=== PATIENT | male | born 1955 | race Caucasian/White ===

== ENCOUNTER 2016-11-03 20:03 | Emergency (ER) | payer SELFPAY ==
[2016-11-03 20:39] LABS: Hematocrit 46 % (42-52); Hemoglobin 15.1 g/dl (14.0-18.0); Mean Corpuscular HGB Conc 33 g/dl (31-36); Mean Corpuscular Hemoglobin 32 pg (27-31); Mean Corpuscular Volume 95 fL (80-94); Mean Platelet Volume 9 um3 (7.4-10.4); Red Cell Distribution Width 13 % (10.5-15); White Blood Count 6.8 10^3/ul (3.5-10.8)
[2016-11-03 20:53] LABS: BUN/Creatinine Ratio 20.4 (8-20); Calcium 9.7 mg/dL (8.6-10.3); EGFR African American 106.2 (>60); EGFR Non-African American 82.6 (>60); Potassium 3.7 mmol/L (3.5-5.0)
[2016-11-03] MEDS ORDERED: Haloperidol INJ IV/IM* 5 MG/ML AMP IM ONE (21:16)
[2016-11-03] MEDS ORDERED: LORazepam INJ* 2 MG/ML 1 ML VIAL IM ONE (21:16)
[2016-11-03] MEDS ORDERED: diPHENhydraMINE IV* 50 MG/ML 1 ml VIAL (BENADRYL) IM ONE (21:16)
[2016-11-03] MEDS ORDERED: LORazepam INJ* 2 MG/ML 1 ML VIAL ONE (21:18)
[2016-11-03] MEDS ORDERED: diPHENhydraMINE IV* 50 MG/ML 1 ml VIAL (BENADRYL) ONE (21:19)
[2016-11-03] MEDS ORDERED: Haloperidol INJ IV/IM* 5 MG/ML AMP ONE (21:19)
--- NOTE | 2016-11-03 22:29 | ED ---
Sonia Yuen Michael, scribed for Grabiel Gonzalez MD on 11/03/16 at 2034 . Complex/Multi-Sys Presentation - HPI Summary HPI Summary: 61 y/o male was BIBA to the ED presenting with hypoglycemia. The pt drove to [place] [employer] [place] and got out of his car when he fell over, and the chema stationary engineer apprentice called 911 per EMS. In the ambulance, the pt had a blood glucose of 37, so he was given one 30g oral glucose tablet, and it was raised to 53. He was given another glucose tablet and his blood glucose remained the same. The pt then took out bag of random tablets, which looked like glucose tablets, and took 7 tablets per EMS. The pt reports to alcohol use to the nurse. He was slurring speech in the ambulance and at the ED. The PMHx is significant for DM. - History Of Current Complaint Chief Complaint: EDDiabeticProb Time Seen by Provider: 11/03/16 20:14 Hx Obtained From: EMS, Medical Records Hx From Patient Unobtainable Due To: Altered Mental Status Onset/Duration: Gradual Onset, Lasting Hours Timing: Constant Severity Currently: Moderate Severity Initially: Moderate Associated Signs And Symptoms: Positive: Other - hypoglycemia. alcohol abuse. slurred speech. PMH/Surg Hx/FS Hx/Imm Hx Endocrine/Hematology History: Reports: Hx Diabetes Infectious Disease History: Denies: Traveled Outside the [place] in Last 30 Days - Family History Known Family History: Positive: Unknown Family History: pt could not report on FHx due to AMS - Social History Occupation: Employed Full-time Lives: Alone Review of Systems Positive: Other - hypoglycemia Positive: Slurred Speech Positive: Other - alcohol use All Other Systems Reviewed And Are Negative: Yes Physical Exam Triage Information Reviewed: Yes Vital Signs On Initial Exam: Initial Vitals Temp Pulse Resp BP Pulse Ox 0 F 0 0 0/0 0 11/03/16 20:32 11/03/16 20:32 11/03/16 20:32 11/03/16 20:32 11/03/16 20:32 Vital Signs Reviewed: Yes Appearance: Positive: No Pain Distress Skin: Positive: Warm Head/Face: Positive: Normal Head/Face Inspection Eyes: Positive: PATY Neck: Positive: Supple Respiratory/Lung Sounds: Positive: Clear to Auscultation, Breath Sounds Present Cardiovascular: Positive: RRR Abdomen Description: Positive: Nontender, Soft Bowel Sounds: Positive: Present Musculoskeletal: Positive: Strength/ROM Intact Neurological: Positive: Alert, Oriented to Person Place, Time Psychiatric: Positive: Anxious Diagnostics - Vital Signs Vital Signs Temp Pulse Resp BP Pulse Ox 11/03/16 22:13 94 122/74 94 11/03/16 21:28 20 11/03/16 20:32 0 F 0 0 0/0 0 - Laboratory Lab Results: Lab Results 11/03/16 11/03/16 Range/Units 20:20 20:20 WBC 6.8 (3.5-10.8) 10^3/ul RBC 4.80 (4.0-5.4) 10^6/ul Hgb 15.1 (14.0-18.0) g/dl Hct 46 (42-52) % MCV 95 H (80-94) fL MCH 32 H (27-31) pg MCHC 33 (31-36) g/dl RDW 13 (10.5-15) % Plt Count 262 (150-450) 10^3/ul MPV 9 (7.4-10.4) um3 Neut % (Auto) 61.2 (38-83) % Lymph % (Auto) 21.2 L (25-47) % [place] % (Auto) 12.4 H (1-9) % Eos % (Auto) 1.9 (0-6) % Baso % (Auto) 3.3 H (0-2) % Absolute Neuts (auto) 4.2 (1.5-7.7) 10^3/ul Absolute Lymphs (auto) 1.4 (1.0-4.8) 10^3/ul Absolute Monos (auto) 0.8 (0-0.8) 10^3/ul Absolute Eos (auto) 0.1 (0-0.6) 10^3/ul Absolute Basos (auto) 0.2 (0-0.2) 10^3/ul Absolute Nucleated RBC 0.02 10^3/ul Nucleated RBC % 0.3 Sodium 137 (133-145) mmol/L Potassium 3.7 (3.5-5.0) mmol/L Chloride 105 (101-111) mmol/L Carbon Dioxide 20 L (22-32) mmol/L Anion Gap 12 H (2-11) mmol/L BUN 19 (6-24) mg/dL Creatinine 0.93 (0.67-1.17) mg/dL Est GFR ( Amer) 106.2 (>60) Est GFR (Non-Af Amer) 82.6 (>60) BUN/Creatinine Ratio 20.4 H (8-20) Glucose 125 H (70-100) mg/dL Calcium 9.7 (8.6-10.3) mg/dL Serum Alcohol 234 H (<10) mg/dL Result Diagrams: 11/03/16 20:20 11/03/16 20:20 Lab Statement: Any lab studies that have been ordered have been reviewed, and results considered in the medical decision making process. Complex Multi-Symp Course/Dx - Diagnoses Provider Diagnoses: Alcohol intoxication, Hypoglycemia Discharge - Discharge Plan Condition: Stable Disposition: HOME Patient Education Materials: Alcohol Intoxication (ED), Diabetic Hypoglycemia ( ED) Referrals: [facility] [place] PHYSICIAN REFERRAL [Outside] Non Staff,Doctor [Primary Care Provider] - Additional Instructions: You should follow up with your PCP or [facility] [place] Physician Referral within the next 2- 3 days. The documentation as recorded by the Sonia petty Michael accurately reflects the service I personally performed and the decisions made by me, Grabiel Gonzalez MD.
== END 2016-11-04 02:18 | disposition home or self-care (01) ==
LOC: ED 20:03
DX: F10.129 Alcohol abuse with intoxication, unspecified (principal); E16.2 Hypoglycemia, unspecified; R47.81 Slurred speech
CPT/HCPCS: 36415; 80048; 80320; 85025; 96374; 96375; 99285; G0480; J1200; J1630; J2060

== ENCOUNTER 2016-11-27 16:50 | Observation (INO) | payer SELFPAY ==
[2016-11-27] MEDS ORDERED: Dextrose 50% Syringe 50 ML* 25 GM/50 ML SYRINGE ONE (16:54)
[2016-11-27] MEDS ORDERED: Haloperidol INJ IV/IM* 5 MG/ML AMP IM ONE (17:01)
[2016-11-27] MEDS ORDERED: LORazepam INJ* 2 MG/ML 1 ML VIAL IM ONE (17:01)
[2016-11-27] MEDS ORDERED: diPHENhydraMINE IV* 50 MG/ML 1 ml VIAL (BENADRYL) IM ONE (17:01)
[2016-11-27] MEDS ORDERED: diPHENhydraMINE IV* 50 MG/ML 1 ml VIAL (BENADRYL) ONE (17:05)
[2016-11-27] MEDS ORDERED: LORazepam INJ* 2 MG/ML 1 ML VIAL ONE (17:05)
[2016-11-27] MEDS ORDERED: Haloperidol INJ IV/IM* 5 MG/ML AMP ONE (17:06)
[2016-11-27 17:17] LABS: Hematocrit 41 % (42-52); Hemoglobin 13.2 g/dl (14.0-18.0); Mean Corpuscular HGB Conc 33 g/dl (31-36); Mean Corpuscular Hemoglobin 32 pg (27-31); Mean Corpuscular Volume 97 fL (80-94); Mean Platelet Volume 9 um3 (7.4-10.4); Red Blood Count 4.17 10^6/ul (4.0-5.4); Red Cell Distribution Width 14 % (10.5-15)
[2016-11-27 17:31] LABS: ALT 16 U/L (7-52); Albumin 3.2 g/dL (3.2-5.2); Alkaline Phosphatase 69 U/L (34-104); BUN/Creatinine Ratio 24.7 (8-20); Blood Urea Nitrogen 19 mg/dL (6-24); CO2 Carbon Dioxide 23 mmol/L (22-32); Calcium 7.2 mg/dL (8.6-10.3); Chloride 110 mmol/L (101-111); EGFR African American 132.1 (>60); EGFR Non-African American 102.7 (>60); Globulin 2.1 g/dL (2-4); Glucose 60 mg/dL (70-100); Sodium 137 mmol/L (133-145); Total Protein 5.3 g/dL (6.4-8.9)
[2016-11-27 17:32] LABS: Anion Gap 4 mmol/L (2-11); Potassium 4.3 mmol/L (3.5-5.0)
[2016-11-27 17:33] LABS: AST 40 U/L (13-39)
[2016-11-27 17:38] LABS: Alcohol < 10 mg/dL (<10)
--- NOTE | 2016-11-27 18:07 | RAD ---
HISTORY: Altered mental status COMPARISONS: None TECHNIQUE: Multiple contiguous axial CT scans were obtained of the head without intravenous contrast. FINDINGS: The study is limited by patient motion artifact. HEMORRHAGE/INFARCT: There is no hemorrhage or acute infarct. MASSES/SHIFT: There is no mass or shift. EXTRA-AXIAL SPACES: There are no extra-axial fluid collections. SULCI AND VENTRICLES: The sulci and ventricles are normal in size and position for the patient's stated age. CEREBRUM: There are no focal parenchymal abnormalities. BRAINSTEM: There are no focal parenchymal abnormalities. CEREBELLUM: There are no focal parenchymal abnormalities. VESSELS: The vessels are grossly normal. PARANASAL SINUSES: The paranasal sinuses are clear. ORBITS: The orbits are unremarkable. BONES AND SOFT TISSUE: No bone or soft tissue abnormalities are noted. OTHER: None IMPRESSION: NO ACUTE INTRACRANIAL PATHOLOGY.
[2016-11-27] MEDS ORDERED: Dextrose 50% Syringe 50 ML* 25 GM/50 ML SYRINGE IV PUSH ONE ×2 (19:27)
[2016-11-27] MEDS ORDERED: D5NS 0.9% 1000 ML BAG* 1,000 ML IV SCH (20:00)
[2016-11-27] MEDS ORDERED: Acetaminophen TAB* 325 MG PO PRN (20:21)
[2016-11-27] MEDS ORDERED: Ondansetron INJ* 2 MG/ML VIAL IV PRN (20:21)
--- NOTE | 2016-11-27 20:51 | RAD ---
HISTORY: Altered mental status, syncope COMPARISONS: None VIEWS:1: Single frontal portable view of the chest at 8:25 PM FINDINGS: LINES AND TUBES: None. CARDIOMEDIASTINAL SILHOUETTE: The cardiomediastinal silhouette is normal for portable technique. PLEURA: The costophrenic angles are sharp. No pleural abnormalities are noted. LUNG PARENCHYMA: The lungs are clear. ABDOMEN: The upper abdomen is clear. There is no subphrenic gas. BONES AND SOFT TISSUES: No bone or soft tissue abnormalities are noted. IMPRESSION: NO ACTIVE CARDIOPULMONARY DISEASE.
[2016-11-27 21:22] LABS: Urine Bilirubin Negative (Negative); Urine Glucose 1+(50 mg/dL) (Negative); Urine Nitrite Negative (Negative)
[2016-11-27 21:28] LABS: Magnesium 1.9 mg/dL (1.9-2.7)
[2016-11-27 21:35] LABS: Benzodiazepine Urine Screen None Detected (None Detect)
--- NOTE | 2016-11-27 21:50 | RAD ---
HISTORY: Syncope, head injury COMPARISONS: None TECHNIQUE: Multiple contiguous axial CT scans were obtained of the cervical spine without intravenous contrast, with coronal and sagittal multiplanar reformations. FINDINGS: BRAIN: The visualized brain is unremarkable CENTRAL CANAL: Evaluation of the central canal is limited on CT technique; however, there is no obvious canalicular mass or epidural hemorrhage. ALIGNMENT: The alignment is normal, without subluxation or dislocation. VERTEBRAL BODIES: There is anterolateral marginal osteophyte formation. There is no displaced fracture or dislocation. JOINTS: There is diffuse uncovertebral and facet hypertrophic change MUSCULATURE: Unremarkable INTERVERTEBRAL DISCS: There is diffuse loss of intervertebral disc height. AXIAL IMAGES: C2-C3: There is no osseous neural foraminal narrowing or central canal stenosis. C3-C4: There is bilateral uncovertebral facet hypertrophy. There is moderate to severe bilateral neural foraminal narrowing. There is no osseous central canal stenosis. C4-C5: There is no osseous neural foraminal narrowing or central canal stenosis. C5-C6: There is bilateral uncovertebral and facet hypertrophy. There is mild bilateral neural foraminal narrowing. There is mild narrowing of the central canal. C6-C7: There is no osseous neural foraminal narrowing or central canal stenosis. C7-T1: There is no osseous neural foraminal narrowing or central canal stenosis. SOFT TISSUES: There are innumerable subcentimeter short axis lymph nodes along the anterior and posterior cervical chain. There is no lymphadenopathy by size criteria. The prevertebral fat stripe is preserved. OTHER: None. IMPRESSION: 1. NO ACUTE OSSEOUS INJURY TO THE CERVICAL SPINE. 2. DEGENERATIVE DISC DISEASE AND OSTEOARTHRITIS. 3. THERE IS MILD NARROWING OF THE CENTRAL CANAL AT C5-C6. THERE IS MULTILEVEL NEURAL FORAMINAL NARROWING DESCRIBED ABOVE. 4. THERE ARE INNUMERABLE SHOTTY SUBCENTIMETER SHORT AXIS LYMPH NODES ALONG THE NECK, WITHOUT LYMPHADENOPATHY BY SIZE CRITERIA
--- NOTE | 2016-11-27 22:04 | ED ---
Amina Yuen Erika, scribed for Dom Vallejo MD on 11/27/16 at 1716 . Altered Mental Status - HPI Summary HPI Summary: Patient is a 61-year-old male BIBA to the ED with decreased responsiveness. EMS reports that patient was found lying on the ground at work with a low blood glucose. EMS gave him glucose en route, which improved responsiveness slightly. Patient was still combative when brought into the ED. EMS reports patient did not vomit en route. LEVEL 5 CAVEAT - AMS. - History Of Current Complaint Chief Complaint: EDSubstanceAbuse Stated Complaint: UNRESPONSIVE Time Seen by Provider: 11/27/16 16:51 Hx Obtained From: EMS Onset/Duration: Still Present Timing: Constant Severity Currently: Moderate Character: Responsiveness Alleviating Factor(s): Glucose - Allergies/Home Medications Allergies/Adverse Reactions: Allergies Allergy/AdvReac Type Severity Reaction Status Date / Time No Known Allergies Allergy Verified 11/27/16 17:48 PMH/Surg Hx/FS Hx/Imm Hx Endocrine/Hematology History: Reports: Hx Diabetes Infectious Disease History: Denies: Traveled Outside the [place] in Last 30 Days - Family History Known Family History: Positive: Unknown Family History: pt could not report on FHx due to AMS - Social History Occupation: Employed Full-time Alcohol Use: unknown Smoking Status (MU): Unknown if Ever Smoked Review of Systems - ROS Summary Review of Systems Summary: LEVEL 5 CAVEAT - AMS Constitutional: Other - Low blood glucose per EMS Negative: Vomiting Neurological: Other - decreased responsiveness All Other Systems Reviewed And Are Negative: No Physical Exam Triage Information Reviewed: Yes Vital Signs On Initial Exam: Initial Vitals Resp 18 11/27/16 17:10 Vital Signs Reviewed: Yes Completion Of Physical Exam Limited Due To: Altered Mental Status, Level 5 Appearance: Positive: Well-Appearing, No Pain Distress Skin: Positive: Warm, Skin Color Reflects Adequate Perfusion, Dry Head/Face: Positive: Cephalohematoma - to the occiput with an abrasion, Other - Small abrasion to the left lateral occiput Eyes: Positive: Normal ENT: Positive: Normal ENT inspection Neck: Positive: Supple, Nontender Respiratory/Lung Sounds: Positive: Clear to Auscultation, Breath Sounds Present Cardiovascular: Positive: RRR Abdomen Description: Positive: Nontender, Soft Bowel Sounds: Positive: Present Neurological: Positive: Other - Patient will answer questions occasionally, but answers are inconsistent. Pt's eyes are closed but open to voice Psychiatric: Positive: Other - Combative Diagnostics - Vital Signs Vital Signs Resp 11/27/16 17:10 18 - Laboratory Lab Results: Lab Results 11/27/16 11/27/16 11/27/16 Range/Units 16:52 16:52 16:52 WBC 6.0 (3.5-10.8) 10^3/ul RBC 4.17 (4.0-5.4) 10^6/ul Hgb 13.2 L (14.0-18.0) g/dl Hct 41 L (42-52) % MCV 97 H (80-94) fL MCH 32 H (27-31) pg MCHC 33 (31-36) g/dl RDW 14 (10.5-15) % Plt Count 248 (150-450) 10^3/ul MPV 9 (7.4-10.4) um3 Neut % (Auto) 53.1 (38-83) % Lymph % (Auto) 30.0 (25-47) % [place] % (Auto) 15.0 H (1-9) % Eos % (Auto) 1.0 (0-6) % Baso % (Auto) 0.9 (0-2) % Absolute Neuts (auto) 3.2 (1.5-7.7) 10^3/ul Absolute Lymphs (auto) 1.8 (1.0-4.8) 10^3/ul Absolute Monos (auto) 0.9 H (0-0.8) 10^3/ul Absolute Eos (auto) 0.1 (0-0.6) 10^3/ul Absolute Basos (auto) 0.1 (0-0.2) 10^3/ul Absolute Nucleated RBC 0.01 10^3/ul Nucleated RBC % 0.1 INR (Anticoag Therapy) (0.89-1.11) Sodium 137 (133-145) mmol/L Potassium 4.3 (3.5-5.0) mmol/L Chloride 110 (101-111) mmol/L Carbon Dioxide 23 (22-32) mmol/L Anion Gap 4 (2-11) mmol/L BUN 19 (6-24) mg/dL Creatinine 0.77 (0.67-1.17) mg/dL Est GFR ( Amer) 132.1 (>60) Est GFR (Non-Af Amer) 102.7 (>60) BUN/Creatinine Ratio 24.7 H (8-20) Glucose 60 L (70-100) mg/dL POC Glucose (mg/dL) (74-106) mg/dL Lactic Acid 2.1 H* (0.5-2.0) mmol/L Calcium 7.2 L (8.6-10.3) mg/dL Magnesium TNP Total Bilirubin 0.40 (0.2-1.0) mg/dL AST 40 H (13-39) U/L ALT 16 (7-52) U/L Alkaline Phosphatase 69 (34-104) U/L Troponin I 0.00 (<0.04) ng/mL Total Protein 5.3 L (6.4-8.9) g/dL Albumin 3.2 (3.2-5.2) g/dL Globulin 2.1 (2-4) g/dL Albumin/Globulin Ratio 1.5 (1-3) Procalcitonin (<0.6) ng/mL Prolactin Cancelled Serum Alcohol < 10 (<10) mg/dL 11/27/16 11/27/16 11/27/16 Range/Units 16:52 16:52 19:38 WBC (3.5-10.8) 10^3/ul RBC (4.0-5.4) 10^6/ul Hgb (14.0-18.0) g/dl Hct (42-52) % MCV (80-94) fL MCH (27-31) pg MCHC (31-36) g/dl RDW (10.5-15) % Plt Count (150-450) 10^3/ul MPV (7.4-10.4) um3 Neut % (Auto) (38-83) % Lymph % (Auto) (25-47) % [place] % (Auto) (1-9) % Eos % (Auto) (0-6) % Baso % (Auto) (0-2) % Absolute Neuts (auto) (1.5-7.7) 10^3/ul Absolute Lymphs (auto) (1.0-4.8) 10^3/ul Absolute Monos (auto) (0-0.8) 10^3/ul Absolute Eos (auto) (0-0.6) 10^3/ul Absolute Basos (auto) (0-0.2) 10^3/ul Absolute Nucleated RBC 10^3/ul Nucleated RBC % INR (Anticoag Therapy) 0.89 (0.89-1.11) Sodium (133-145) mmol/L Potassium (3.5-5.0) mmol/L Chloride (101-111) mmol/L Carbon Dioxide (22-32) mmol/L Anion Gap (2-11) mmol/L BUN (6-24) mg/dL Creatinine (0.67-1.17) mg/dL Est GFR ( Amer) (>60) Est GFR (Non-Af Amer) (>60) BUN/Creatinine Ratio (8-20) Glucose 169 H (70-100) mg/dL POC Glucose (mg/dL) (74-106) mg/dL Lactic Acid (0.5-2.0) mmol/L Calcium (8.6-10.3) mg/dL Magnesium Total Bilirubin (0.2-1.0) mg/dL AST (13-39) U/L ALT (7-52) U/L Alkaline Phosphatase (34-104) U/L Troponin I (<0.04) ng/mL Total Protein (6.4-8.9) g/dL Albumin (3.2-5.2) g/dL Globulin (2-4) g/dL Albumin/Globulin Ratio (1-3) Procalcitonin < 0.1 (<0.6) ng/mL Prolactin Serum Alcohol (<10) mg/dL 11/27/16 Range/Units 20:10 WBC (3.5-10.8) 10^3/ul RBC (4.0-5.4) 10^6/ul Hgb (14.0-18.0) g/dl Hct (42-52) % MCV (80-94) fL MCH (27-31) pg MCHC (31-36) g/dl RDW (10.5-15) % Plt Count (150-450) 10^3/ul MPV (7.4-10.4) um3 Neut % (Auto) (38-83) % Lymph % (Auto) (25-47) % [place] % (Auto) (1-9) % Eos % (Auto) (0-6) % Baso % (Auto) (0-2) % Absolute Neuts (auto) (1.5-7.7) 10^3/ul Absolute Lymphs (auto) (1.0-4.8) 10^3/ul Absolute Monos (auto) (0-0.8) 10^3/ul Absolute Eos (auto) (0-0.6) 10^3/ul Absolute Basos (auto) (0-0.2) 10^3/ul Absolute Nucleated RBC 10^3/ul Nucleated RBC % INR (Anticoag Therapy) (0.89-1.11) Sodium (133-145) mmol/L Potassium (3.5-5.0) mmol/L Chloride (101-111) mmol/L Carbon Dioxide (22-32) mmol/L Anion Gap (2-11) mmol/L BUN (6-24) mg/dL Creatinine (0.67-1.17) mg/dL Est GFR ( Amer) (>60) Est GFR (Non-Af Amer) (>60) BUN/Creatinine Ratio (8-20) Glucose (70-100) mg/dL POC Glucose (mg/dL) 150 H (74-106) mg/dL Lactic Acid (0.5-2.0) mmol/L Calcium (8.6-10.3) mg/dL Magnesium Total Bilirubin (0.2-1.0) mg/dL AST (13-39) U/L ALT (7-52) U/L Alkaline Phosphatase (34-104) U/L Troponin I (<0.04) ng/mL Total Protein (6.4-8.9) g/dL Albumin (3.2-5.2) g/dL Globulin (2-4) g/dL Albumin/Globulin Ratio (1-3) Procalcitonin (<0.6) ng/mL Prolactin Serum Alcohol (<10) mg/dL Result Diagrams: 11/27/16 16:52 11/27/16 21:05 Lab Statement: Any lab studies that have been ordered have been reviewed, and results considered in the medical decision making process. - CT Brain CT CT Interpretation Completed By: Radiologist - IMPRESSION: NO ACUTE INTRACRANIAL PATHOLOGY. Re-Evaluation - Re-Evaluation First Eval Re-Evaluation Time: 19:27 Comment: Notified patient's blood glucose is 36. Into room. D50 ordered. Altered Mental Statu Course/Dx - Course Course Of Treatment: Mr. Morgan came in having been found unresponsive with a low blood sugar. He was given D50 with some response but he was quite confused and agitated on arrival and his BS was again low. He was given more D50 with some improvement but not complete. Within an hour he dropped his BS again and was given another bolus and started on a drip. - Diagnoses Discharge Diagnoses: Hypoglycemia associated with diabetes - Provider Notifications Discussed Care Of Patient With: Dr. Mccarthy (hospitalist) at 20:12 - agrees to admit - Critical Care Time Critical Care Time: 30-74 min Discharge - Discharge Plan Condition: Fair Disposition: ADMITTED TO [facility] documentation as recorded by the Amina petty Erika accurately reflects the service I personally performed and the decisions made by me, Dom Vallejo MD.
--- NOTE | 2016-11-27 22:36 | HP ---
H&P (Free Text) History and Physical: PCP: Date/Time of Evaluation: 11/27/20162014 CC: AMS, refractory hypoglycemia, closed head injury HPI: Mr Morgan is a 61YO male HX recently diagnosed DM2 who was found down where he works at the [email or web address] with a contusion to the occipital area. Blood sugar reading was 'low' upon arrival of EMS prompting administration of an amp of D50. He arrived to [facility] agitated with a finger stick glucose of 77. An additional amp of D50 was administered resulting in increased energy, but continued confusion. Blood work returned a glucose of 60 resulting in a 3rd dose of D50. Upon my arrival, he is quite fatigued requiring repetitive stimulation to remain awake during the history. He denies complaints, specifically no chest pain, SOB, palpitations, N/V, sweats, changes in bowel/ bladder, focal W/N/T, HX seizures, or other issues. He claims to only drink ~3 alcoholic beverages weekly. Evaluation reveals stable vitals. Labs are significant for an MCV of 97, the above low sugars, a lactic acid of 2.1, & a negative urine tox screen. Interestingly he was here in [facility] on 11/03/2016 with hypoglycemia and a serum alcohol of 235 clearly refuting his claim of minimal alcohol consumption. ECG is NSR rate 83, no ischemia. Radiologic work up is negative for acute finding. Overall it seems most likely given his recent intoxication and MCV of 97 that he consumes more than he admits, has had an alcohol withdrawal seizure resulting in a fall with closed head injury & profound hypoglycemia, and is now post-ictal explaining his lethargy & confusion post-glucose replacement. Alternatively, he could have become profoundly hypoglycemic and fallen with his ongoing confusion related to a mild concussion. PMedHx DM2 HTN HLD Medications Nursing to reconcile Allergies No Known Allergies Allergy (Verified 11/27/16 17:48) SocHx: denies tobacco & recreational drugs, claims 1-3 alcoholic drinks weekly; works for the [email or web address]; full code status FamHx: positive for DM2, HTN ROS: as above, otherwise reviewed and all were negative Constitutional: NAD, normally developed, well-nourished white male vitals: Vital Signs Temp 37.0 C 11/27/16 17:12 Pulse 63 11/27/16 21:00 Resp 24 11/27/16 17:12 BP 101/59 11/27/16 21:00 Pulse Ox 94 11/27/16 21:00 Intake & Output 11/26/16 11/27/16 11/27/16 23:59 11:59 23:59 Weight 72.575 kg HEENM: boggy contusion/hematoma central occiput; sclera/conjunctiva: non-icteric /clear; hearing: clinically intact; oropharynx: clear, mucosa moist Neck: soft tissue: non-tender; thyroid: normal Pulmonary: clear to auscultation bilaterally, good aeration, no accessory muscle use CV: RR/RR, normal S1S2, no carotid bruit, no jugular venous distention, 2+ B DP/ PT, no edema Abdominal: soft, non-distended, non-tender, no rebound/guarding/rigidity, normoactive bowel sounds, no hepatosplenomegaly or masses, no costovertebral angle tenderness Musculoskeletal: general: grossly intact; gait: too lethargic to safely test Integumental: normal appearance and texture Psychiatric orientation: AA&O to PPS affect: lethargic mood: acquiescent eye contact: poor content: unreliable currently memory: absent regarding event responses: slowed, requires recurrent physical stimulation to remain awake insight: poor Testing: Lab Results 11/27/16 11/27/16 11/27/16 Range/Units 16:52 16:52 16:52 WBC 6.0 (3.5-10.8) 10^3/ul RBC 4.17 (4.0-5.4) 10^6/ul Hgb 13.2 L (14.0-18.0) g/dl Hct 41 L (42-52) % MCV 97 H (80-94) fL MCH 32 H (27-31) pg MCHC 33 (31-36) g/dl RDW 14 (10.5-15) % Plt Count 248 (150-450) 10^3/ul MPV 9 (7.4-10.4) um3 Neut % (Auto) 53.1 (38-83) % Lymph % (Auto) 30.0 (25-47) % Buchanan % (Auto) 15.0 H (1-9) % Eos % (Auto) 1.0 (0-6) % Baso % (Auto) 0.9 (0-2) % Absolute Neuts (auto) 3.2 (1.5-7.7) 10^3/ul Absolute Lymphs (auto) 1.8 (1.0-4.8) 10^3/ul Absolute Monos (auto) 0.9 H (0-0.8) 10^3/ul Absolute Eos (auto) 0.1 (0-0.6) 10^3/ul Absolute Basos (auto) 0.1 (0-0.2) 10^3/ul Absolute Nucleated RBC 0.01 10^3/ul Nucleated RBC % 0.1 INR (Anticoag Therapy) (0.89-1.11) Sodium 137 (133-145) mmol/L Potassium 4.3 (3.5-5.0) mmol/L Chloride 110 (101-111) mmol/L Carbon Dioxide 23 (22-32) mmol/L Anion Gap 4 (2-11) mmol/L BUN 19 (6-24) mg/dL Creatinine 0.77 (0.67-1.17) mg/dL Est GFR ( Amer) 132.1 (>60) Est GFR (Non-Af Amer) 102.7 (>60) BUN/Creatinine Ratio 24.7 H (8-20) Glucose 60 L (70-100) mg/dL POC Glucose (mg/dL) (74-106) mg/dL Lactic Acid 2.1 H* (0.5-2.0) mmol/L Calcium 7.2 L (8.6-10.3) mg/dL Magnesium TNP Total Bilirubin 0.40 (0.2-1.0) mg/dL AST 40 H (13-39) U/L ALT 16 (7-52) U/L Alkaline Phosphatase 69 (34-104) U/L Troponin I 0.00 (<0.04) ng/mL Total Protein 5.3 L (6.4-8.9) g/dL Albumin 3.2 (3.2-5.2) g/dL Globulin 2.1 (2-4) g/dL Albumin/Globulin Ratio 1.5 (1-3) Procalcitonin (<0.6) ng/mL Prolactin Cancelled Urine Color Urine Appearance Urine pH (5-9) Ur Specific [place] (1.010-1.030) Urine Protein (Negative) Urine Ketones (Negative) Urine Blood (Negative) Urine Nitrate (Negative) Urine Bilirubin (Negative) Urine Urobilinogen (Negative) Ur Leukocyte Esterase (Negative) Urine Glucose (Negative) Urine Opiates Screen (None Detect) Ur Barbiturates Screen (None Detect) Ur Phencyclidine Scrn (None Detect) Ur Amphetamines Screen (None Detect) U Benzodiazepines Scrn (None Detect) Urine Cocaine Screen (None Detect) U Cannabinoids Screen (None Detect) Serum Alcohol < 10 (<10) mg/dL 11/27/16 11/27/16 11/27/16 Range/Units 16:52 16:52 19:38 WBC (3.5-10.8) 10^3/ul RBC (4.0-5.4) 10^6/ul Hgb (14.0-18.0) g/dl Hct (42-52) % MCV (80-94) fL MCH (27-31) pg MCHC (31-36) g/dl RDW (10.5-15) % Plt Count (150-450) 10^3/ul MPV (7.4-10.4) um3 Neut % (Auto) (38-83) % Lymph % (Auto) (25-47) % Buchanan % (Auto) (1-9) % Eos % (Auto) (0-6) % Baso % (Auto) (0-2) % Absolute Neuts (auto) (1.5-7.7) 10^3/ul Absolute Lymphs (auto) (1.0-4.8) 10^3/ul Absolute Monos (auto) (0-0.8) 10^3/ul Absolute Eos (auto) (0-0.6) 10^3/ul Absolute Basos (auto) (0-0.2) 10^3/ul Absolute Nucleated RBC 10^3/ul Nucleated RBC % INR (Anticoag Therapy) 0.89 (0.89-1.11) Sodium (133-145) mmol/L Potassium (3.5-5.0) mmol/L Chloride (101-111) mmol/L Carbon Dioxide (22-32) mmol/L Anion Gap (2-11) mmol/L BUN (6-24) mg/dL Creatinine (0.67-1.17) mg/dL Est GFR ( Amer) (>60) Est GFR (Non-Af Amer) (>60) BUN/Creatinine Ratio (8-20) Glucose 169 H (70-100) mg/dL POC Glucose (mg/dL) (74-106) mg/dL Lactic Acid (0.5-2.0) mmol/L Calcium (8.6-10.3) mg/dL Magnesium Total Bilirubin (0.2-1.0) mg/dL AST (13-39) U/L ALT (7-52) U/L Alkaline Phosphatase (34-104) U/L Troponin I (<0.04) ng/mL Total Protein (6.4-8.9) g/dL Albumin (3.2-5.2) g/dL Globulin (2-4) g/dL Albumin/Globulin Ratio (1-3) Procalcitonin < 0.1 (<0.6) ng/mL Prolactin Urine Color Urine Appearance Urine pH (5-9) Ur Specific [place] (1.010-1.030) Urine Protein (Negative) Urine Ketones (Negative) Urine Blood (Negative) Urine Nitrate (Negative) Urine Bilirubin (Negative) Urine Urobilinogen (Negative) Ur Leukocyte Esterase (Negative) Urine Glucose (Negative) Urine Opiates Screen (None Detect) Ur Barbiturates Screen (None Detect) Ur Phencyclidine Scrn (None Detect) Ur Amphetamines Screen (None Detect) U Benzodiazepines Scrn (None Detect) Urine Cocaine Screen (None Detect) U Cannabinoids Screen (None Detect) Serum Alcohol (<10) mg/dL 11/27/16 11/27/16 11/27/16 Range/Units 20:10 20:45 21:05 WBC (3.5-10.8) 10^3/ul RBC (4.0-5.4) 10^6/ul Hgb (14.0-18.0) g/dl Hct (42-52) % MCV (80-94) fL MCH (27-31) pg MCHC (31-36) g/dl RDW (10.5-15) % Plt Count (150-450) 10^3/ul MPV (7.4-10.4) um3 Neut % (Auto) (38-83) % Lymph % (Auto) (25-47) % Buchanan % (Auto) (1-9) % Eos % (Auto) (0-6) % Baso % (Auto) (0-2) % Absolute Neuts (auto) (1.5-7.7) 10^3/ul Absolute Lymphs (auto) (1.0-4.8) 10^3/ul Absolute Monos (auto) (0-0.8) 10^3/ul Absolute Eos (auto) (0-0.6) 10^3/ul Absolute Basos (auto) (0-0.2) 10^3/ul Absolute Nucleated RBC 10^3/ul Nucleated RBC % INR (Anticoag Therapy) (0.89-1.11) Sodium (133-145) mmol/L Potassium 3.7 (3.5-5.0) mmol/L Chloride (101-111) mmol/L Carbon Dioxide (22-32) mmol/L Anion Gap (2-11) mmol/L BUN (6-24) mg/dL Creatinine (0.67-1.17) mg/dL Est GFR ( Amer) (>60) Est GFR (Non-Af Amer) (>60) BUN/Creatinine Ratio (8-20) Glucose (70-100) mg/dL POC Glucose (mg/dL) 150 H 147 H (74-106) mg/dL Lactic Acid (0.5-2.0) mmol/L Calcium (8.6-10.3) mg/dL Magnesium 1.9 Total Bilirubin (0.2-1.0) mg/dL AST 31 (13-39) U/L ALT (7-52) U/L Alkaline Phosphatase (34-104) U/L Troponin I (<0.04) ng/mL Total Protein (6.4-8.9) g/dL Albumin (3.2-5.2) g/dL Globulin (2-4) g/dL Albumin/Globulin Ratio (1-3) Procalcitonin (<0.6) ng/mL Prolactin Urine Color Urine Appearance Urine pH (5-9) Ur Specific [place] (1.010-1.030) Urine Protein (Negative) Urine Ketones (Negative) Urine Blood (Negative) Urine Nitrate (Negative) Urine Bilirubin (Negative) Urine Urobilinogen (Negative) Ur Leukocyte Esterase (Negative) Urine Glucose (Negative) Urine Opiates Screen (None Detect) Ur Barbiturates Screen (None Detect) Ur Phencyclidine Scrn (None Detect) Ur Amphetamines Screen (None Detect) U Benzodiazepines Scrn (None Detect) Urine Cocaine Screen (None Detect) U Cannabinoids Screen (None Detect) Serum Alcohol (<10) mg/dL 11/27/16 11/27/16 11/27/16 Range/Units 21:05 21:10 21:10 WBC (3.5-10.8) 10^3/ul RBC (4.0-5.4) 10^6/ul Hgb (14.0-18.0) g/dl Hct (42-52) % MCV (80-94) fL MCH (27-31) pg MCHC (31-36) g/dl RDW (10.5-15) % Plt Count (150-450) 10^3/ul MPV (7.4-10.4) um3 Neut % (Auto) (38-83) % Lymph % (Auto) (25-47) % [place]anan % (Auto) (1-9) % Eos % (Auto) (0-6) % Baso % (Auto) (0-2) % Absolute Neuts (auto) (1.5-7.7) 10^3/ul Absolute Lymphs (auto) (1.0-4.8) 10^3/ul Absolute Monos (auto) (0-0.8) 10^3/ul Absolute Eos (auto) (0-0.6) 10^3/ul Absolute Basos (auto) (0-0.2) 10^3/ul Absolute Nucleated RBC 10^3/ul Nucleated RBC % INR (Anticoag Therapy) (0.89-1.11) Sodium (133-145) mmol/L Potassium (3.5-5.0) mmol/L Chloride (101-111) mmol/L Carbon Dioxide (22-32) mmol/L Anion Gap (2-11) mmol/L BUN (6-24) mg/dL Creatinine (0.67-1.17) mg/dL Est GFR ( Amer) (>60) Est GFR (Non-Af Amer) (>60) BUN/Creatinine Ratio (8-20) Glucose (70-100) mg/dL POC Glucose (mg/dL) (74-106) mg/dL Lactic Acid (0.5-2.0) mmol/L Calcium (8.6-10.3) mg/dL Magnesium Total Bilirubin (0.2-1.0) mg/dL AST (13-39) U/L ALT (7-52) U/L Alkaline Phosphatase (34-104) U/L Troponin I (<0.04) ng/mL Total Protein (6.4-8.9) g/dL Albumin (3.2-5.2) g/dL Globulin (2-4) g/dL Albumin/Globulin Ratio (1-3) Procalcitonin (<0.6) ng/mL Prolactin 17.5 Urine Color Straw Urine Appearance Clear Urine pH 6.0 (5-9) Ur Specific [place] 1.009 L (1.010-1.030) Urine Protein Negative (Negative) Urine Ketones Trace H (Negative) Urine Blood Negative (Negative) Urine Nitrate Negative (Negative) Urine Bilirubin Negative (Negative) Urine Urobilinogen Negative (Negative) Ur Leukocyte Esterase Negative (Negative) Urine Glucose 1+(50 mg/dl) H (Negative) Urine Opiates Screen None detected (None Detect) Ur Barbiturates Screen None detected (None Detect) Ur Phencyclidine Scrn None detected (None Detect) Ur Amphetamines Screen None detected (None Detect) U Benzodiazepines Scrn None detected (None Detect) Urine Cocaine Screen None detected (None Detect) U Cannabinoids Screen None detected (None Detect) Serum Alcohol (<10) mg/dL ECG, personally reviewed: NSR rate 83, no ischemia CXR, personally reviewed: IMPRESSION: NO ACTIVE CARDIOPULMONARY DISEASE. CT brain WO, personally reviewed: IMPRESSION: NO ACUTE INTRACRANIAL PATHOLOGY. CT C-spine WO: IMPRESSION: 1. NO ACUTE OSSEOUS INJURY TO THE CERVICAL SPINE. 2. DEGENERATIVE DISC DISEASE AND OSTEOARTHRITIS. 3. THERE IS MILD NARROWING OF THE CENTRAL CANAL AT C5-C6. THERE IS MULTI- LEVEL NEURAL FORAMINAL NARROWING DESCRIBED ABOVE. 4. THERE ARE INNUMERABLE SHOTTY SUBCENTIMETER SHORT AXIS LYMPH NODES ALONG THE NECK, WITHOUT LYMPHADENOPATHY BY SIZE CRITERIA Impression: 61M newly diagnosed DM2 presents with AMS & refractory hypoglycemia DIAGNOSIS & PLAN Primary hypoglycemia : D5NS @ 125cc/hr : Q2H glucometry : hold all hypoglycemics for now : no obvious infective burden : supportive care AMS : dDX: post-ictal from alcohol withdrawal seizure vs hypoglycemic encephalopathy vs post-concussive : seizure precautions : EEG in AM : prevent further hypoglycemia : NPO until mental status clears : monitor Secondary HTN : currently normotensive : review meds once reconciled HLD : heart healthy consistent carb diet once taking PO : review meds once reconciled Admission Rational: CDU observation for AMS & hypoglycemia DVTp: SCDs Code Status: full
[2016-11-27] MEDS: Docusate CAP* 100 MG PO SCH (23:02)
[2016-11-28] MEDS ORDERED: D5NS 0.9% 1000 ML BAG* 1,000 ML IV SCH (01:00)
[2016-11-28 05:25] LABS: Hematocrit 39 % (42-52); Hemoglobin 12.9 g/dl (14.0-18.0); Mean Corpuscular HGB Conc 33 g/dl (31-36); Mean Corpuscular Hemoglobin 32 pg (27-31); Mean Corpuscular Volume 97 fL (80-94); Mean Platelet Volume 9 um3 (7.4-10.4); Red Blood Count 4.08 10^6/ul (4.0-5.4); Red Cell Distribution Width 14 % (10.5-15); White Blood Count 7.6 10^3/ul (3.5-10.8)
[2016-11-28 05:38] LABS: Anion Gap 5 mmol/L (2-11); BUN/Creatinine Ratio 18.8 (8-20); Blood Urea Nitrogen 13 mg/dL (6-24); CO2 Carbon Dioxide 23 mmol/L (22-32); Calcium 8.5 mg/dL (8.6-10.3); Chloride 105 mmol/L (101-111); EGFR African American 149.9 (>60); EGFR Non-African American 116.6 (>60); Glucose 234 mg/dL (70-100); Potassium 4.1 mmol/L (3.5-5.0); Sodium 133 mmol/L (133-145)
[2016-11-28] MEDS ORDERED: Heparin VIAL(*) 5000 UNITS/ML VIAL (FIVE THOUSAND) SUBCUT SCH (06:00)
[2016-11-28 07:25] VITALS: BP 118/59
[2016-11-28 08:44] LABS: Folate > 20.00 ng/mL (>3.99)
[2016-11-28 08:45] LABS: Vitamin B12 359 pg/mL (180-914)
[2016-11-28] MEDS ORDERED: Insulin LISPRO* 1 UNITS UNIT SUBCUT ONE ×2 (08:54→10:45)
[2016-11-28] MEDS ORDERED: Insulin GLARGINE(*) 1 UNITS UNIT SUBCUT SCH ×2 (09:00)
[2016-11-28] MEDS ORDERED: Pantoprazole IV* 40 MG IV SCH (09:00)
[2016-11-28] MEDS: Insulin LISPRO* 1 UNITS UNIT SUBCUT SCH ×2 (09:07→12:15)
[2016-11-28] MEDS: Docusate CAP* 100 MG PO SCH (09:21)
[2016-11-28] MEDS ORDERED: Insulin LISPRO* 1 UNITS UNIT SUBCUT SCH (11:30)
--- NOTE | 2016-11-29 02:51 | DS ---
DISCHARGE SUMMARY: DATE OF ADMISSION: 11/27/16 DATE OF DISCHARGE: 11/28/16 PRIMARY CARE PROVIDER: Out of the area. SANITARY ENGINEERING TEACHER: To be established is Dr. Butch Lopez. DISCHARGING PROVIDER: ROSALINA Warren. SUPERVISING PHYSICIAN: Dr. Jose Carlos Sawant* (dictated by ROSALINA Warren). PRIMARY DISCHARGE DIAGNOSIS: Metabolic encephalopathy secondary to severe hypoglycemia. SECONDARY DISCHARGE DIAGNOSES: 1. Type 1 diabetes. 2. Mild macrocytic anemia. 3. Hypertension. 4. Hyperlipidemia. HOSPITAL IMAGIN. CT of the brain shows no acute processes. 2. CT of the cervical spine shows no fracture or other acute process. 3. Chest x-ray shows no acute processes. 4. EKG shows a normal sinus rhythm. HOSPITAL COURSE: This is a 61-year-old gentleman with a longstanding history of type 1 diabetes who presented to the emergency department with altered mental status and severe hypoglycemia. The patient was found down at his place of work and initial glucometer reading by EMS was simply "low." The patient received multiple amps of D50. His initial glucose upon arriving in the emergency department was 36, upon repeat was 29. The patient's level of consciousness improved slightly after his glucose improved with 3 amps of D50, but he remained quite lethargic. Initial imaging including a CT of his brain and cervical spine were unremarkable. The remainder of his labs were also essentially within normal limits. There was question as to whether the patient experienced a seizure due to his prolonged lethargic states that may have represented a postictal period. This seems to be less likely as his lactic acid was 2.1 at the time of admission and had a normal prolactin at 17.5. Also , of note, the patient had a mildly elevated MCV measured at 97 and mild anemia with a hemoglobin of 13. There was suspicion as to whether patient has history of alcohol abuse, but the patient adamantly denied this. Vitamin B12 and folate levels were checked both of which were within normal limits. The patient was subsequently admitted under observation status and placed on D5 normal saline overnight. His glucose improved to the mid 200s overnight and the patient's mental status improved back to baseline. The patient states that he recently moved to the area and is yet to establish primary care provider or investment banking associate. He states that he has managed his glucose for several years as he was diagnosed in his 20s and generally lives a regimented life, but since his move things has been off lately and he feels like he has been having more difficulty managing his diabetes resulting in frequent hypoglycemic episodes. The patient was actually seen in the emergency department just less than a month ago with hypoglycemia and alcohol intoxication. Hemoglobin A1c was checked, but was not available for review at the time of discharge. Suspected that the patient has been over treating his glucose. He reported that his average fasting glucose numbers have been in the 40s or 50s and his premeal numbers have been similar. He has been using 19 units of Lantus daily and then covers himself with additional sliding scale of Humalog. If his glucose is greater than 200, then will carb count with a ratio of 1 to 8 at sit down meals. DISPOSITION: The patient is being discharged to home, where he lives on his own. He seems to have average to high level of intelligence and good understanding of his glycemic control. He was recommended to have his Lantus dosed to 10 units daily as well as his sliding scale Humalog. Provided with a name and phone number of Dr. Lopez to establish Endocrinology care. It was explained the patient that his fasting blood glucose goals should be between 100 and 120 mg/dL indicating excellent control. His current glucose numbers are well below recommended levels and certainly his frequent hypoglycemic episodes are explainable secondary to this. The patient demonstrated good understanding of this. ROSALINA WARREN CC: Butch Lopez MD* [id number]/[facility] #: [id number] [place]
== END 2016-11-28 14:00 | disposition home or self-care (01) ==
LOC: ED 16:50 → MEDTELE 20:14
PROVIDERS: ADMIT Hospitalist; ATTEND Internal Medicine
DX: E10.649 Type 1 diabetes mellitus with hypoglycemia without coma (principal); G93.41 Metabolic encephalopathy; Z79.4 Long term (current) use of insulin; I10 Essential (primary) hypertension; D64.9 Anemia, unspecified; E78.5 Hyperlipidemia, unspecified
CPT/HCPCS: 36415; 70450; 71010; 72125; 80048; 80053; 80307; 80320; 81003; 82607; 82746; 82947; 83036; 83605; 83735; 84145; 84146; 84484; 85025; 85027; 85610; 93005; 96361; 96372; 96374; 99291; G0378; G0480; J1200; J1630; J2060